=== PATIENT | female | born 1945 | race Caucasian/White ===

== ENCOUNTER 2020-05-29 08:15 | Outpatient (CLI) | payer OTHER | END 2020-05-29 08:37 | disposition home or self-care (01) | LOC: MAMO-SONO 08:15 | PROVIDERS: ATTEND Internal Medicine Cardiovascular Disease | DX: Q44.6 Cystic disease of liver (principal); Z12.31 Encounter for screening mammogram for malignant neoplasm of breast; N64.59 Other signs and symptoms in breast; N28.89 Other specified disorders of kidney and ureter; R10.84 Generalized abdominal pain ==